=== PATIENT | male | born 1945 | race Caucasian/White ===

== ENCOUNTER 2017-01-30 13:04 | Emergency (ER) | payer OTHER, BC ==
[~2017-01-30] VITALS: Ht 185.4 cm; Wt 83.4 kg
[2017-01-30] MEDS ORDERED: METOPROLOL TARTRATE 50 MG TAB PO ONE (13:30)
[2017-01-30 13:32] VITALS: Ht 185.4 cm; Wt 83.4 kg
[2017-01-30 13:38] VITALS: O2SAT 96
--- NOTE | 2017-01-30 13:39 | EMERGENCY ROOM VISIT NOTE ---
History Report prepared by Alex: Tata Conklin Under the Supervision of: Dr. Pedrito Villalta M.D. First contact with patient: 13:15 Stated Complaint: SOB/TACHYCARDIA History of Present Illness The patient is a 71 year old male who presents to the Emergency Room with complaints of intermittent palpitations starting 1100 today. The patient heart rate went up into the 130s around 1100 today. He sat down and tried drinking some water. His heart rate eventually went down. An hour later, he started having palpitations again and found that his heart rate was elevated. He decided to come to the ED. He presents to the ED by EMS. Dr. Batista took command. He has had these symptoms in the past with PSVT. He is on metoprolol and digoxin. He denies missing any medications. He was SOB, diaphoretic, and had some chest discomfort. He denies any leg pain or abdominal pain. He currently feels improved. He has had stents placed 11-Jul-2010 and 20-Apr-2011. Source of History: patient Onset: 1100 Position: other (global) Quality: other (palpitations) Timing: intermittent Associated Symptoms: + diaphoresis, + chest pain, + SOB, No abdominal pain Note: Pt denies leg pain. Review of Systems All systems have been listed, reviewed, and are negative other than those previously mentioned. Please see Additional Medical History Sheet. Past Medical & Surgical Medical Problems: (1) Diabetes (2) PSVT (paroxysmal supraventricular tachycardia) Surgical Problems: (1) Stented coronary artery Family History Cancer Diabetes mellitus Heart disease Social History Marital Status: Housing Status: lives with significant other Occupation Status: retired Current/Historical Medications Scheduled Aspirin (Aspirin Chewable), 81 MG PO DAILY Atorvastatin (Lipitor), 20 MG PO DAILY Digoxin (Digoxin), 0.125 MG PO DAILY Digoxin (Lanoxin), 125 MCG PO QD Glucosamine Hydrochloride (Glucosamine), 3,000 MG PO DAILY Lisinopril (Lisinopril), 2.5 MG PO DAILY Metformin Hcl (Glucophage), 500 MG PO TID Metoprolol Succ (Toprol Xl) (Toprol-Xl), 25 MG PO HS Metoprolol Succ (Toprol Xl) (Toprol-Xl ), 25 MG PO DAILY Multiple Vitamins W/ Minerals (Multi For Him 50+), 1 TAB PO DAILY Nitroglycerin (Nitrostat), 0.4 MG UT PRN Prasugrel Hcl (Effient), 10 MG PO DAILY Ranolazine (Ranexa), 2,000 MG PO DAILY Scheduled PRN Fiber Laxative (Fiber Laxative), 1 TAB PO DAILY PRN for Miscellaneous Medications Ranolazine (Ranexa) Allergies Coded Allergies: Lactose (Unverified Allergy, Unknown, GI SYMPTOMS, 01/30/17) Penicillins (Unverified Allergy, Unknown, UNKNOWN, 01/30/17) Physical Exam Vital Signs Date Time Temp Pulse Resp B/P (MAP) Pulse Ox O2 Delivery O2 Flow Rate FiO2 01/30/17 14:49 59 20 133/82 97 Room Air 01/30/17 13:53 89 22 127/86 94 Room Air 01/30/17 13:46 95 Room Air 01/30/17 13:38 96 Room Air 01/30/17 13:32 145 26 132/99 95 Room Air 01/30/17 13:12 141 Physical Exam GENERAL: Patient awake, alert, oriented x 3. Patient follows commands. Patient does not appear toxic. Patient is adequately hydrated and well- nourished. SKIN: No erythema, pallor, cyanosis or rash HEENT: Normal head, pupils equal, reactive to light and accommodation. LUNGS: Clear to auscultation. No wheezes, no rales, no rhonchi. HEART: Regular rate. No murmurs. No gallops. No rubs ABDOMEN: No masses, no rebound, no hepatomegaly or splenomegaly. EXTREMITIES: No signs of trauma. No pedal or pretibial edema. No calf or thigh tenderness. NEUROLOGIC: Cranial nerves II-XII within normal limits. No gross motor sensory function deficits. Medical Decision & Procedures ER Provider Diagnostic Interpretation: X ray results are stated below per my interpretation and the radiologist's interpretation. TWO VIEW CHEST CLINICAL HISTORY: Atypical chest pain. FINDINGS: PA and lateral chest radiographs are obtained. No prior studies are available for comparison at the time of dictation. The cardiomediastinal silhouette is unremarkable. There is mild atherosclerotic calcification of the thoracic aorta. There is elevation of the right hemidiaphragm with associated right basilar atelectasis. The lungs and pleural spaces are otherwise clear. Apical scarring is observed. There is no pneumothorax. The skeletal structures are osteopenic. The bony thorax appears intact. IMPRESSION: No acute cardiopulmonary abnormality. Electronically signed by: José Manuel Driver M.D. 01/30/2017 2:28 PM Dictated Date/Time: 01/30/2017 2:27 PM Laboratory Results 01/30/17 13:30 01/30/17 13:30 Test 01/30/17 13:30 Red Blood Count 5.48 M/uL (4.7-6.1) Mean Corpuscular Volume 91.2 fL (80-100) Mean Corpuscular Hemoglobin 31.6 pg (25-34) Mean Corpuscular Hemoglobin Concent 34.6 g/dl (32-36) RDW Standard Deviation 45.6 fL (36.4-46.3) RDW Coefficient of Variation 13.6 % (11.5-14.5) Mean Platelet Volume 10.7 fL (7.4-10.4) Anion Gap 7.0 mmol/L (3-11) Est Creatinine Clear Calc Drug Dose 70.2 ml/min Estimated GFR () 78.7 Estimated GFR (Non- 67.9 BUN/Creatinine Ratio 15.6 (10-20) Calcium Level 9.0 mg/dl (8.5-10.1) Total Bilirubin 0.6 mg/dl (0.2-1) Aspartate Amino Transf (AST/SGOT) 30 U/L (15-37) Alanine Aminotransferase (ALT/SGPT) 41 U/L (12-78) Alkaline Phosphatase 77 U/L (45-117) Troponin I < 0.015 ng/ml (0-0.045) Total Protein 7.7 gm/dl (6.4-8.2) Albumin 4.3 gm/dl (3.4-5.0) Globulin 3.4 gm/dl (2.5-4.0) Albumin/Globulin Ratio 1.3 (0.9-2) Digoxin Level 0.2 ng/ml (0.8-2.0) Laboratory results as stated above per my review. Medications Administered Medications (Trade) Dose Ordered Sig/Catie Route Start Time Stop Time Status Last Admin Dose Admin Metoprolol Tartrate (Lopressor Tab) 25 mg ONE ONCE PO 01/30/17 13:30 01/30/17 13:31 DC 01/30/17 13:52 25 MG ECG Indication: tachycardia Rate (beats per minute): 140 Rhythm: SVT Findings: 1st degree AV block, ST depression (leads 2, 3, aVF, V3-V6), left axis deviation ED Course 1316: Past medical records reviewed. The patient was evaluated in room A9B. A complete history and physical examination was performed. 1330: Lopressor Tab 25 mg PO. 1335: Repeat EKG shows NSR, rate 88, left axis deviation, patient now has minimal ST depression compared to the first. 1450: I reevaluated the patient. He feels improved. His heart rate is now in the 60s. He now reports that he has been cutting his pills in half recently. He also missed his Lanoxin this morning. I discussed today's findings with him. He verbalized agreement of the treatment plan. He was discharged home. Medical Decision Nurses notes reviewed. Medical history sheet reviewed. Differential diagnosis includes but is not limited to: PSVT, atrial fibrillation, PVC, PAC, acute myocardial infarction. The patient is here with paroxysmal supraventricular tachycardia. He has had this problem in the past and has required adenosine. The patient converted on his own while here in the ED prior to administration of any medications. Initial rate was 140. After conversion he slowly went down to 60. The initial ST depressions resolved. Troponin was not elevated. The patient was given additional 25 mg of oral metoprolol. Further history obtained from the patient revealed that the patient had been holding back on some of his medications including Lanoxin which he did not take this morning. The patient was concerned about running out of medications. I will give him additional prescriptions for metoprolol and Lanoxin. Medication Reconcilliation Current Medication List: was personally reviewed by me Blood Pressure Screening Patient's blood pressure: Normal blood pressure Blood pressure disposition: Did not require urgent referral Impression Primary Impression: Paroxysmal supraventricular tachycardia Scribe Attestation The scribe's documentation has been prepared under my direction and personally reviewed by me in its entirety. I confirm that the note above accurately reflects all work, treatment, procedures, and medical decision making performed by me. Departure Information Dispostion Home / Self-Care Prescriptions Metoprolol Succ (Toprol Xl) (Toprol-Xl ) 100 Mg Tabcr 25 MG PO DAILY, #30 TAB Prov: Pedrito Villalta M.D. 01/30/17 Digoxin (Lanoxin) 62.5 Mcg Tab 125 MCG PO QD, #30 TABS Prov: Pedrito Villalta M.D. 01/30/17 Additional Instructions Take all of your medications exactly as prescribed. Follow-up with your regular doctor within the next 10 days. Return to the closest emergency department if you have another episode of tachycardia.
[2017-01-30 13:58] LABS: MEAN CELL VOLUME 91.2 fL (80-100); MEAN CORPUSCULAR HEMOGLOBIN 31.6 pg (25-34); MEAN CORPUSCULAR HGB CONC 34.6 g/dl (32-36); MEAN PLATELET VOLUME 10.7 fL (7.4-10.4); PLATELET COUNT 195 K/uL (130-400); RED BLOOD COUNT 5.48 M/uL (4.7-6.1); WHITE BLOOD COUNT 7.73 K/uL (4.8-10.8)
[2017-01-30 14:08] LABS: ALT/SGPT 41 U/L (12-78); AST/SGOT 30 U/L (15-37); BLOOD UREA NITROGEN 17 mg/dl (7-18); BUN/CREATININE RATIO 15.6 (10-20); CARBON DIOXIDE 27 mmol/L (21-32); CHLORIDE 103 mmol/L (98-107); CREATININE 1.09 mg/dl (0.60-1.40); GLUCOSE 176 mg/dl (70-99); POTASSIUM 3.6 mmol/L (3.5-5.1); SODIUM 137 mmol/L (136-145)
[2017-01-30 14:13] LABS: ALB/GLOB RATIO 1.3 (0.9-2); ALKALINE PHOSPHATASE 77 U/L (45-117)
[2017-01-30] MEDS ORDERED: LSN25 PO (14:14)
[2017-01-30] MEDS ORDERED: METO25TA3 PO (14:14)
[2017-01-30] MEDS ORDERED: MULT-221 PO (14:14)
[2017-01-30] MEDS ORDERED: NTRGSL/4 UT (14:14)
[2017-01-30] MEDS ORDERED: RNXER500 (14:14)
[2017-01-30] MEDS ORDERED: ATOR-22 PO (14:14)
[2017-01-30] MEDS ORDERED: LNX125 PO (14:14)
[2017-01-30] MEDS ORDERED: GLUC15009 PO (14:14)
[2017-01-30] MEDS ORDERED: GLC/500 PO (14:14)
[2017-01-30] MEDS ORDERED: FIBER PO (14:14)
[2017-01-30] MEDS ORDERED: RANO1000 PO (14:14)
[2017-01-30] MEDS ORDERED: PRAS1TAB6 PO (14:14)
[2017-01-30] MEDS ORDERED: ASPCH81X PO (14:14)
--- NOTE | 2017-01-30 14:29 | DIAGNOSTIC IMAGING REPORT ---
TWO VIEW CHEST CLINICAL HISTORY: Atypical chest pain. FINDINGS: PA and lateral chest radiographs are obtained. No prior studies are available for comparison at the time of dictation. The cardiomediastinal silhouette is unremarkable. There is mild atherosclerotic calcification of the thoracic aorta. There is elevation of the right hemidiaphragm with associated right basilar atelectasis. The lungs and pleural spaces are otherwise clear. Apical scarring is observed. There is no pneumothorax. The skeletal structures are osteopenic. The bony thorax appears intact. IMPRESSION: No acute cardiopulmonary abnormality. Electronically signed by: José Manuel Driver M.D. 01/30/2017 2:28 PM Dictated Date/Time: 01/30/2017 2:27 PM
[2017-01-30] MEDS ORDERED: METO100T44 PO (14:57)
[2017-01-30] MEDS ORDERED: DIGO1TAB61 PO (14:57)
[2017-01-30 15:45] VITALS: BP 111/71; PULSE 48; O2SAT 96
== END 2017-01-30 15:54 | disposition home or self-care (01) ==
LOC: C.EDA 13:06
DX: I47.1 Supraventricular tachycardia (principal); E11.9 Type 2 diabetes mellitus without complications; Z95.5 Presence of coronary angioplasty implant and graft; Z83.3 Family history of diabetes mellitus; Z82.49 Family history of ischemic heart disease and other diseases of the circulatory system; Z79.82 Long term (current) use of aspirin